=== PATIENT | female | born 1955 | race Caucasian/White ===

== ENCOUNTER → 2017-05-07 | Day surgery (SDC) | payer BC ==
[~2017-05-07] MED LIST: HERBAL SUPPLEMENT PO; VESICARE PO
--- NOTE | ~2017-05-07 | OR ---
Unit #: [id number] #: [id number] Patient: LENY SANTIAGO [id number] [address] [place], [place] [address] [id number] MR#: [id number] NAME: LENY SANTIAGO ROOM: Date of Procedure: 05/07/2017 Admission Date: 05/07/2017 Surgeon: Cat Jasso D.P.M. : 1955 Attending Physician: Cat Jasso D.P.M. Referring Physician: Cat Jasso D.P.M. Primary Care Physician: Generic Doctor Not In System OPERATIVE REPORT PREOPERATIVE DIAGNOSIS Hallux abductovalgus on the left foot. POSTOPERATIVE DIAGNOSIS Hallux abductovalgus on the left foot. PROCEDURES PERFORMED Tano bunionectomy, osteotomy with internal fixation on the left foot. ANESTHESIA General with local INDICATIONS FOR PROCEDURE The patient presented to the office, complaining of chronic bunion pain in the left foot times several years. She has stated that it was getting worse. She stated she has experienced a decrease in activity level due to discomfort. She stated she had exhausted conservative care that consisted of modified shoes, injections, physical therapy, NSAIDs, rest, shoe modification, orthotics with little to no relief. She requested more prominent more means of correction. She was consulted on outpatient surgery. She was made aware of possible complications of surgery including but not limited to overcorrection, undercorrection, delayed healing, infection, recurrence with deformity, need for future surgeries, failed fixation, and scar tissue. She elected to have the outpatient procedure performed. DESCRIPTION OF PROCEDURE The patient underwent IV sedation in the left foot and ankle prepped and draped in the usual aseptic manner and ankle tourniquet was inflated to 250 mmHg. A dorsal linear incision over the first metatarsal and proximal phalanx, proximally 5 cm was made. The incision was deepened via sharp and blunt dissection. Bleeders were clamped and ligated. The deep intermetatarsal ligament was released in the inner space. A capsulotomy and abductor tenotomy was performed. The lateral first MPJ was entered and the sesamoid apparatus was released and the sesamoid was therefore re-located under the head of the first metatarsal. Attention was then directed to the medial aspect of the first metatarsal head, where a capsulorrhaphy was performed. The capsule was removed off the head of the first metatarsal and retracted proximally. The head of the first metatarsal was brought into the surgical site and the medial bunion eminence was removed using a sagittal saw. Next, an Tano osteotomy was Unit #: [id number] #: [id number] Patient: LENY SANTIAGO performed. The head was shifted laterally approximately, a third of the width of the first metatarsal. Fixation of this osteotomy was achieved using a stable fixation. The bone was found be extremely porous and very osteoporotic. The area was then flushed with copious amount of antibiotic saline solution and the capsule was reapproximated using 3-0 Vicryl simple interrupted fashion. The subcuticular tissue was reapproximated using 4-0 Vicryl and the skin was reapproximated using 5-0 Nylon. A dry sterile compressive dressing and posterior splint were applied. The tourniquet had been released and all digits had returned to normal coloration within several seconds of its release. The patient was brought back to recovery room, where she was given written as well as oral instructions and is to remain non-weightbearing due to the questionable bone stalk and therefore healing concerned. Dictated by... Trina RiosPDella SEVILLA/andrew TD: 05/21/2017 08:53 JOB #: [id number] OPERATIVE REPORT Page 1 of 1 X Rex Jasso PROCEDURE OPERATIVE NOTE
== END | disposition home or self-care (01) ==
LOC: CSUR 09:57
DX: M20.12 Hallux valgus (acquired), left foot (principal)
CPT/HCPCS: C1713; J2250; J2405; J3010; J3301; J3370